=== PATIENT | female | born 1945 | race Caucasian/White ===

== ENCOUNTER 2018-06-25 10:29 | Day surgery (SDC) | payer MEDICARE, MEDICAID ==
[2018-06-25] VITALS (9 sets, daily range): BP systolic 111–138; BP diastolic 54–73
[~2018-06-25] VITALS: Ht 175.3 cm; Wt 74.9 kg
[2018-06-25] MEDS ORDERED: LIDOcaine 1% (10mg/ml) 2ml vial ONE (10:51)
[2018-06-25] MEDS ORDERED: sod bicarbonate 150mEq in D5W 1,150 ML IV ONE (10:55)
[2018-06-25] MEDS ORDERED: diphenhydrAMINE 25mg capsule PO PRN (10:55)
[2018-06-25] MEDS ORDERED: DULO-31 PO (11:18)
[2018-06-25] MEDS ORDERED: PANT-47 PO (11:18)
[2018-06-25] MEDS ORDERED: ALBU8.5H8 IH (11:18)
[2018-06-25] MEDS ORDERED: METO-539 PO (11:18)
[2018-06-25] MEDS ORDERED: HYDR-4353 PO (11:18)
[2018-06-25] MEDS ORDERED: FURO40TA4 PO (11:18)
[2018-06-25] MEDS ORDERED: UMEC1DIS INH (11:18)
[2018-06-25 11:40] LABS: BASOPHILS # (AUTO) 0.1 X10'3 (0-0.2); EOSINOPHILS # (AUTO) 0.2 X10'3 (0-0.9); EOSINOPHILS % (AUTO) 2.6 % (0-6); HEMOGLOBIN 16.4 g/dl (12.0-16.0); LYMPHOCYTES # (AUTO) 2.3 X10'3 (1.1-4.8); LYMPHOCYTES % (AUTO) 33.8 % (21-51); MEAN CORPUSCULAR HEMOGLOBIN 30.9 PG (27.0-31.0); MEAN CORPUSCULAR HGB CONC 33.5 % (33.0-36.5); MEAN CORPUSCULAR VOLUME 92.4 FL (78-98); MEAN PLATELET VOLUME 9.5 FL (7.4-10.4); MONOCYTES # (AUTO) 0.4 X10'3 (0-0.9); MONOCYTES % (AUTO) 6.5 % (2-12); NEUTROPHILS # (AUTO) 3.7 X10'3 (1.8-7.7); NEUTROPHILS % (AUTO) 56.1 % (42-75); PLATELET COUNT 260 X10'3 (140-440); RED BLOOD COUNT 5.31 X10'6 (4.20-5.60); RED CELL DISTRIBUTION WIDTH 14.3 % (11.5-14.5); WHITE BLOOD COUNT 6.7 X10'3 (4.5-11.0)
[2018-06-25 12:01] LABS: ALBUMIN 4.3 G/DL (3.4-5.0); ANION GAP 10 (8-16); BLOOD UREA NITROGEN 13 MG/DL (7-18); BUN/CREATININE RATIO 17.3 (6.6-38.0); CALCIUM 9.9 MG/DL (8.5-10.1); CHLORIDE 96 MMOL/L (99-107); CREATININE 0.75 MG/DL (0.40-0.90); GLUCOSE 90 MG/DL (70-104); MAGNESIUM 2.3 MG/DL (1.5-2.4); POTASSIUM 3.4 MMOL/L (3.5-5.1); SODIUM 138 MMOL/L (135-145); TOTAL CARBON DIOXIDE 31.8 MMOL/L (24-32); eGFR 76 ML/MIN
[2018-06-25 12:09] LABS: INR 0.9 INR; PARTIAL THROMBOPLASTIN TIME 27 SECONDS (22-32); PROTHROMBIN TIME 9.5 SECONDS (9.0-12.0)
[2018-06-25] MEDS ORDERED: midazolam 2 mg/2 ml injection ONE (12:23)
[2018-06-25] MEDS ORDERED: iohexol 350 MG/ML 50ML vial IV ONE (12:23)
[2018-06-25] MEDS ORDERED: fentaNYL/PF 50MCG/1 ML 2ML syringe ONE (12:23)
[2018-06-25] MEDS ORDERED: iohexol 350MG/ML 100ml bottle IV ONE (12:23)
[2018-06-25] MEDS ORDERED: LIDOcaine 1% (10mg/ml)w/preservative injection 20ml MDV ONE (12:23)
== END 2018-06-25 17:15 | disposition home or self-care (01) ==
LOC: SSTAY O 10:29
PROVIDERS: ATTEND Internal Medicine Cardiovascular Disease
DX: I25.118 Atherosclerotic heart disease of native coronary artery with other forms of angina pectoris (principal); I08.2 Rheumatic disorders of both aortic and tricuspid valves; I10 Essential (primary) hypertension; G89.29 Other chronic pain; M79.7 Fibromyalgia; M85.88 Other specified disorders of bone density and structure, other site; J44.9 Chronic obstructive pulmonary disease, unspecified; F17.210 Nicotine dependence, cigarettes, uncomplicated; M19.90 Unspecified osteoarthritis, unspecified site; I47.1 Supraventricular tachycardia; Z98.84 Bariatric surgery status; Z90.49 Acquired absence of other specified parts of digestive tract; Z90.710 Acquired absence of both cervix and uterus; Z87.11 Personal history of peptic ulcer disease; Z86.718 Personal history of other venous thrombosis and embolism; Z85.820 Personal history of malignant melanoma of skin; Z79.891 Long term (current) use of opiate analgesic; Z90.89 Acquired absence of other organs; Z79.899 Other long term (current) drug therapy; Z98.890 Other specified postprocedural states; Z80.1 Family history of malignant neoplasm of trachea, bronchus and lung; Z82.49 Family history of ischemic heart disease and other diseases of the circulatory system
CPT/HCPCS: 36415; 80048; 83735; 85025; 85610; 85730; 93005; 93460; 99152; 99153; A6257; C1760; J1644; J2001; J2250; J3010; J3490; Q0163; Q9967; A4620; C1894